=== PATIENT | male | born 1980 | race African-American/Black ===

== ENCOUNTER 2019-10-28 08:11 | Emergency (ER) | payer OTHER ==
[~2019-10-28] VITALS: Ht 165.1 cm; Wt 70.3 kg
[2019-10-28 08:13] VITALS: BP 136/103
== END 2019-10-28 08:59 | disposition home or self-care (01) ==
LOC: ER 08:11
DX: S01.412A Laceration without foreign body of left cheek and temporomandibular area, initial encounter (principal); W50.0XXA Accidental hit or strike by another person, initial encounter; Y93.89 Activity, other specified; Y92.89 Other specified places as the place of occurrence of the external cause; Y99.8 Other external cause status